=== PATIENT | male | born 1995 | race African-American/Black ===

== ENCOUNTER 2017-04-21 02:26 | Emergency (ER) | payer SELFPAY, OTHER ==
[2017-04-21] MEDS: IBUPROFEN 400 MG TABLET. PO (03:28)
== END 2017-04-21 03:20 | disposition home or self-care (01) ==
LOC: ER 02:26
DX: K04.7 Periapical abscess without sinus (principal); J45.909 Unspecified asthma, uncomplicated; Z88.2 Allergy status to sulfonamides
CPT/HCPCS: 99283

== ENCOUNTER 2017-05-20 18:56 | Emergency (ER) | payer SELFPAY | END 2017-05-20 19:25 | disposition home or self-care (01) | LOC: ER 18:56 | DX: K02.9 Dental caries, unspecified (principal); K08.89 Other specified disorders of teeth and supporting structures; J45.909 Unspecified asthma, uncomplicated; F17.200 Nicotine dependence, unspecified, uncomplicated; Z88.2 Allergy status to sulfonamides | CPT/HCPCS: 99283 ==

== ENCOUNTER 2018-11-17 16:56 | Emergency (ER) | payer SELFPAY ==
[~2018-11-17] VITALS: Ht 188 cm; Wt 108.9 kg
[~2018-11-17 16:56] MED LIST: IBUP-1027 PO; IBUP-1060 PO; PENI500T PO
[2018-11-17 17:19] VITALS: BP 162/94
[2018-11-17] MEDS ORDERED: CHLO15MO2 PO (18:42)
[2018-11-17] MEDS ORDERED: AMOX1TAB61 PO (18:42)
--- NOTE | 2018-11-17 18:42 | PHYS DOC ---
Past Medical History Past Medical History: Asthma Past Surgical History: No Surgical History Smoking: Cigarettes Alcohol Use: None Drug Use: None Adult General Chief Complaint Chief Complaint: DENTAL PROBLEM HPI HPI 23-year-old male presents with one-day history of right maxillary third molar pain and discomfort at site of known dental caries. Denies fever or chills. Review of Systems Review of Systems Constitutional: Denies fever or chills HENT: Denies nasal congestion; reports right maxillary molar pain Integument: Denies rash or skin lesions Neurologic: Denies headache, focal weakness or sensory changes Complete systems were reviewed and found to be within normal limits, except as documented in this note. Current Medications Current Medications Current Medications Medications (Trade) Dose Ordered Sig/Rain Start Time Stop Time Status Last Admin Dose Admin Amoxicillin/ Clavulanate Potassium (Augmentin 875/ 125mg) 1 tab 1X ONCE 11/17/18 18:45 11/17/18 18:46 DC 11/17/18 18:54 1 TAB Bupivacaine HCl/ Epinephrine Bitart (Sensorcain-Epi 0.5%-1:763991 Mpf) 30 ml 1X ONCE 11/17/18 18:45 11/17/18 18:46 DC 11/17/18 18:54 30 ML Dexamethasone (Decadron) 10 mg 1X ONCE 11/17/18 18:45 11/17/18 18:46 DC 11/17/18 18:54 10 MG Allergies Allergies Allergies Coded Allergies Type Severity Reaction Last Updated Verified Sulfa (Sulfonamide Antibiotics) Allergy Intermediate 04/21/17 Yes Physical Exam Physical Exam Constitutional: Well developed, well nourished, no acute distress, non-toxic appearance HENT: Normocephalic, atraumatic, oropharynx moist, right maxillary third molar with severe dental yohana, left maxillary third molar with moderate-severe dental yohana, pain on palpation of right third molar, no fluctuant mass, gingivitis noted throughout, poor dentition Eyes: Conjunctiva normal, no discharge Neck: Normal range of motion, supple Skin: Warm, dry, no erythema, no rash Neurologic: Alert and oriented X 3, no focal deficits noted Psychologic: Affect normal, judgement normal Current Patient Data Vital Signs Vital Signs Date Time Temp Pulse Resp B/P (MAP) Pulse Ox O2 Delivery O2 Flow Rate FiO2 11/17/18 17:19 97.2 83 20 162/94 (116) 98 Room Air 97.2 EKG EKG [] Radiology/Procedures Radiology/Procedures [] Course & Med Decision Making Course & Med Decision Making Patient presents for dentalgia due to dental caries. Dental block performed with interval resolution of symptoms. Inflammation and infection also addressed with oral steroid and empiric antibiotic. Patient stable for discharge with outpatient follow-up with PCP/dentist. Discussed findings and plan with patient and family, who acknowledge understanding and agreement. Dragon Disclaimer Dragon Disclaimer This electronic medical record was generated, in whole or in part, using a voice recognition dictation system. Additional Procedures Progress Dental block: Verbal consent obtained. Time out performed. Hand hygiene utilized. Anesthesia obtained via superior-posterior alveolar block to right side with a 25-gauge hypodermic needle with (3) mL's of bupivacaine 0.5% with epinephrine. Patient tolerated procedure well and without difficulty with interval resolution of pain. Departure Departure Impression: Primary Impression: Dental caries Additional Impressions: Dentalgia Gingivitis Disposition: HOME, SELF-CARE Condition: STABLE Referrals: NO PCP (PCP) Patient Instructions: Dental Caries, Gingivitis, [id number], Toothache-Brief Additional Instructions: Use over the counter Tylenol and Ibuprofen for pain or discomfort. Scripts Chlorhexidine Gluconate (PERIDEX) 15 Ml Mouthwash 15 ML PO BID for 10 Days, #473 ML Prov: ARCHANA FOWLER DO 11/17/18 Amoxicillin/Potassium Clav (AUGMENTIN 875-125 TABLET) 1 Each Tablet 1 TAB PO BID, #14 TAB Prov: ARCHANA FOWLER DO 11/17/18 Problem Qualifiers ARCHANA FOWLER DO Nov 17, 2018 18:42
[2018-11-17] MEDS ORDERED: BUPIVACAINE-EPI 0.5%-1:200000 MPF 30 ML VIAL. INJ ONE (18:45)
[2018-11-17] MEDS ORDERED: AMOXICILLIN/K CLAV 875/125MG TABLET. PO ONE (18:45)
[2018-11-17] MEDS ORDERED: DEXAMETHASONE 4 MG TABLET PO ONE (18:45)
== END 2018-11-17 19:01 | disposition home or self-care (01) ==
LOC: ER 16:56
DX: K02.9 Dental caries, unspecified (principal); K05.10 Chronic gingivitis, plaque induced; J45.909 Unspecified asthma, uncomplicated; F17.210 Nicotine dependence, cigarettes, uncomplicated; Z88.2 Allergy status to sulfonamides
CPT/HCPCS: 64400; 99284; J3490; J8540